=== PATIENT | male | born 1985 | race Caucasian/White ===

== ENCOUNTER 2017-08-21 16:34 | Emergency (ER) | payer BC ==
--- NOTE | 2017-08-21 17:14 | EDM.PDOC ---
ED HPI GENERAL MEDICAL PROBLEM - General Chief Complaint: Skin Complaint Stated Complaint: DRAINAGE OF A CYST ON NECK Time Seen by Provider: 08/21/17 16:44 Source of Information: Reports: Patient History Limitations: Reports: No Limitations - History of Present Illness INITIAL COMMENTS - FREE TEXT/NARRATIVE: HISTORY AND PHYSICAL: History of present illness: [Clyde is a 31-year-old male here for an abscess on his neck. Noticed it about 5-7 days ago, states it recently came to a head but not draining. Slightly painful. Denies fevers or chills. ] Review of systems: As per history of present illness and below otherwise all systems reviewed and negative. Past medical history: As per history of present illness and as reviewed below otherwise noncontributory. Surgical history: As per history of present illness and as reviewed below otherwise noncontributory. Social history: No reported history of drug or alcohol abuse. Family history: As per history of present illness and as reviewed below otherwise noncontributory. Physical exam: HEENT: Fluctuant abscess on the left side of the neck without surrounding erythema. Atraumatic, normocephalic, pupils reactive, negative for conjunctival pallor or scleral icterus, mucous membranes moist, throat clear, neck supple, nontender, trachea midline. Lungs: Clear to auscultation, breath sounds equal bilaterally, chest nontender. Heart: S1S2, regular, negative for clicks, rubs, or JVD. Extremities: Atraumatic, negative for cords or calf pain. Neurovascular unremarkable. Neuro: Awake, alert, oriented. Cranial nerves II through XII unremarkable. Cerebellum unremarkable. Motor and sensory unremarkable throughout. Exam nonfocal. Notes: Diagnostics: [I &D Wound culture] Therapeutics: [Bactrim] Impression: [Abcess] Plan: [#1 take antibiotic as instructed #2 follow up with PCP #3 Return to ED as needed as discussed] Definitive disposition and diagnosis as appropriate pending reevaluation and review of above. left side neck Pain Score (Numeric/FACES): 3 - Related Data Allergies Allergy/AdvReac Type Severity Reaction Status Date / Time No Known Allergies Allergy Verified 08/21/17 17:06 Home Meds: Home Meds . [No Known Home Meds] 08/21/17 [History] ED ROS GENERAL - Review of Systems Review Of Systems: ROS reveals no pertinent complaints other than HPI. ED EXAM, SKIN/RASH Exam: See Below (see dictation) ED SKIN PROCEDURES - I&D Site: right neck Local Anesthesia: Lidocaine: 1% Plain Local Anesthetic Volume: 2cc Area Incised With: 11 Blade Drainage: Purulent, Bloody, Moderate Amount Probed to Break Up Loculations: Yes Packed With: None Sterile Dressing: Adhesive Dressing Complications: No Course - Vital Signs Last Recorded V/S: Last Vital Signs Temp 37.6 C 08/21/17 17:07 Pulse 105 H 08/21/17 17:07 Resp 18 08/21/17 17:07 BP 138/98 H 08/21/17 17:07 Pulse Ox 99 08/21/17 17:07 - Orders/Labs/Meds Orders: Active Orders 24 hr Category Date Time Status CULTURE WOUND [RM] Stat Lab 08/21/17 17:41 Received Meds: Medications Discontinued Medications Generic Name Dose Route Start Last Admin Trade Name Isaiah PRN Reason Stop Dose Admin Lidocaine HCl 5 ml 08/21/17 17:10 Xylocaine-Mpf 1% INJECT 08/21/17 17:11 ONETIME ONE Departure - Departure Time of Disposition: 17:48 Disposition: Home, Self-Care 01 Condition: Good Clinical Impression: Abscess - Discharge Information Referrals: Maribell Higginbotham [Primary Care Provider] - Forms: ED Department Discharge Additional Instructions: The following information is given to patients seen in the emergency department who are being discharged to home. This information is to outline your options for follow-up care. We provide all patients seen in our emergency department with a follow-up referral. The need for follow-up, as well as the timing and circumstances, are variable depending upon the specifics of your emergency department visit. If you don't have a primary care physician on staff, we will provide you with a referral. We always advise you to contact your personal physician following an emergency department visit to inform them of the circumstance of the visit and for follow-up with them and/or the need for any referrals to a consulting specialist. The emergency department will also refer you to a specialist when appropriate. This referral assures that you have the opportunity for follow-up care with a specialist. All of these measure are taken in an effort to provide you with optimal care, which includes your follow-up. Under all circumstances we always encourage you to contact your private physician who remains a resource for coordinating your care. When calling for follow-up care, please make the office aware that this follow-up is from your recent emergency room visit. If for any reason you are refused follow-up, please contact the [facility] at and asked to speak to the emergency department charge nurse. [facility] [address] [place] [id number] #1 take antibiotic as instructed #2 follow up with PCP #3 Return to ED as needed as discussed - My Orders Last 24 Hours: My Active Orders 08/21/17 17:41 CULTURE WOUND [RM] Stat - Assessment/Plan Last 24 Hours: My Active Orders 08/21/17 17:41 CULTURE WOUND [RM] Stat
== END 2017-08-21 17:53 | disposition home or self-care (01) ==
LOC: MW.ED 16:34
DX: L02.11 Cutaneous abscess of neck (principal)
CPT/HCPCS: 87070; 99282